=== PATIENT | female | born 1975 | race Caucasian/White ===

== ENCOUNTER 2020-08-29 22:32 | Emergency (ER) | payer OTHER ==
[2020-08-29 22:38] VITALS: BP 143/72; PULSE 100; RESP 18; TEMP 98.1
[2020-08-29] MEDS ORDERED: ACETAMINOPHEN TAB 500 MG TAB PO STA (22:49)
[2020-08-29] MEDS ORDERED: IBUPROFEN 600 MG STARTER PACK 4 TAB BTL PO STA (22:50)
--- NOTE | 2020-08-29 23:14 | XR ---
EXAMINATION TYPE: XR ankle complete RT DATE OF EXAM: 08/29/2020 COMPARISON: NONE HISTORY: Ankle pain. Trauma. TECHNIQUE: 3 views FINDINGS: There is transverse fracture of the distal fibula. There is lateral soft tissue swelling. A nkle mortise is not widened. The talus is intact. IMPRESSION: Acute nondisplaced transverse fracture distal fibula. Soft tissue swelling.
--- NOTE | 2020-08-29 23:16 | XR ---
EXAMINATION TYPE: XR foot complete RT DATE OF EXAM: 08/29/2020 COMPARISON: NONE HISTORY: Ankle pain TECHNIQUE: 3 views FINDINGS: Metatarsals appear intact. The toes appear intact. There is nondisplaced transverse fractur e distal fibula. There is some lateral soft tissue swelling at the ankle. IMPRESSION: No foot fracture seen. There is lateral malleolus fracture noted.
[2020-08-29] MEDS ORDERED: ACET/COD 300 MG/30 MG STARTER PACK 6 TAB BTL PO STA (23:54)
--- NOTE | 2020-08-29 23:54 | ED ---
Lower Extremity Injury HPI - General Chief Complaint: Extremity Injury, Lower Stated Complaint: R foot injury Time Seen by Provider: 08/29/20 22:39 Source: patient Mode of arrival: wheelchair Limitations: no limitations - History of Present Illness Initial Comments: 45-year-old female patient presents the emergency department today for evaluation of right ankle and foot injury. Patient states that shortly prior to arrival she was coming down the stairs, missed the last step and rolled the ankle. States she is unsure which way her foot turned. States that the area immediately swelled. States she is having pain. Denies numbness or tingling to the foot. She denies falling, hitting her head, losing consciousness. Denies any other injuries. Has not taken anything for pain. Denies chance of . Patient denies any headache, neck pain, back pain, chest pain, shortness of breath, dizziness, weakness, abdominal pain, nausea, vomiting, or difficulties with bowel movements or urination. - Related Data Previous Rx's Medication Instructions Recorded Ibuprofen [Motrin] 600 mg PO Q8HR PRN #30 tab 08/29/20 Allergies Allergy/AdvReac Type Severity Reaction Status Date / Time No Known Allergies Allergy Verified 08/29/20 22:38 Review of Systems ROS Statement: Those systems with pertinent positive or pertinent negative responses have been documented in the HPI. ROS Other: All systems not noted in ROS Statement are negative. Past Medical History Past Medical History: No Reported History History of Any Multi-Drug Resistant Organisms: None Reported Past Surgical History: No Surgical Hx Reported Past Psychological History: No Psychological Hx Reported Smoking Status: Never smoker Past Alcohol Use History: Occasional Past Drug Use History: None Reported General Exam Limitations: no limitations General appearance: alert, in no apparent distress, other (Physical well- developed, well-nourished adult female patient in no acute distress. Vital signs upon presentation are temperature 98.1F, pulse 100, respirations 18, blood pressure 143/72, pulse ox 100% on room air.) ENT exam: Present: normal exam, normal oropharynx, mucous membranes moist Cardiovascular Exam: Present: regular rate, normal rhythm, normal heart sounds. Absent: systolic murmur, diastolic murmur, rubs, gallop, clicks GI/Abdominal exam: Present: soft, normal bowel sounds. Absent: distended, tenderness, guarding, rebound, rigid Extremities exam: Present: full ROM, tenderness (right lateral malleolus), normal capillary refill, other (Soft tissue swelling surrounding the right lateral malleolus. No fifth metarsal tenderness or swelling. No proximal tib fib tenderness. Skin is otherwise pink, warm, dry. Cap refill less than 3 seconds. Pedal and posttibial pulses 2+ and equal bilaterally.). Absent: pedal edema, joint swelling, calf tenderness Neurological exam: Present: alert, oriented X3, CN II-XII intact Psychiatric exam: Present: normal affect, normal mood Skin exam: Present: warm, dry, intact, normal color. Absent: rash Course Vital Signs 08/29/20 22:34 Temperature 98.1 F Pulse Rate 100 Respiratory 18 Rate Blood Pressure 143/72 O2 Sat by Pulse 100 Oximetry Procedures - Orthopedic Splinting/Casting Injury #1 Side: right Lower Extremity Injury Location: short leg, ankle Lower Extremity Immobilizer: stirrup splint, Neto wrap, synthetic pre-padded splint Additional Comments: Neurovascular status intact after splint application. Skin to the foot is pink, warm, dry. Cap refill less than 3 seconds. Pedal pulse 2+. Medical Decision Making - Medical Decision Making 45-year-old female patient presented to the emergency department today for evaluation of right ankle and foot pain after rolling her ankle coming down the stairs. Physical examination did reveal significant soft tissue swelling surrounding the right lateral malleolus. Neurovascular status was intact. X- ray was obtained and did reveal distal fibula fracture. She is placed in a stirrup splint as documented. To be discharged with behavior specialist for further evaluation.. She does live out of town, she was given copy of x-ray to take with her. She is given in town ortho for follow-up but instructed to contact her primary care physician for referral. He is instructed to keep splint in place until follow-up. Educated regarding rest, ice, elevation. Return parameters were discussed in detail. She verbalizes understanding and agrees with this plan. My attending is Dr. Menjivar. - Radiology Data Radiology results: report reviewed, image reviewed 3 views of the right foot are obtained. Report is reviewed in its entirety. Impression by Dr. Springer shows no for fracture seen. There is lateral malleolus fracture noted. 3 views of the right ankle are obtained. Report was reviewed in its entirety. Impression by Dr. Springer shows acute nondisplaced transverse fracture distal fibula. Soft tissue swelling. Disposition Clinical Impression: Closed fracture of right distal fibula Disposition: HOME SELF-CARE Condition: Good Instructions (If sedation given, give patient instructions): Ankle Fracture (ED), Splint Care (ED) Additional Instructions: Leave splint in place until follow-up with orthopedics, if Neto wrap feels too tight, you are able to loosen these. Do not get the splint wet. Take pain medication as directed. Follow-up with your primary care physician for recheck in 1-2 days. Follow-up with orthopedics as soon as possible. Return or present to nearest emergency department for any new, worsening, or concerning symptoms. Prescriptions: Ibuprofen [Motrin] 600 mg PO Q8HR PRN #30 tab PRN Reason: Pain Is patient prescribed a controlled substance at d/c from ED?: No Referrals: Susana Coto MD [Primary Care Provider] - 1-2 days Roberto Berrios DO [Doctor of Osteopathic Medicine] - 1-2 days Time of Disposition: 23:54
== END 2020-08-30 00:22 | disposition home or self-care (01) ==
LOC: EC 22:32
DX: S82.831A Other fracture of upper and lower end of right fibula, initial encounter for closed fracture (principal); X50.1XXA Overexertion from prolonged static or awkward postures, initial encounter
CPT/HCPCS: 29515; 99283